=== PATIENT | male | born 1960 | race Hispanic/Latino ===

== ENCOUNTER 2018-06-04 02:22 | Inpatient (IN) | payer OTHER ==
[2018-06-04] MEDS ORDERED: Morphine 4 MG/ML VIAL ONE (03:15)
[2018-06-04] MEDS ORDERED: Ondansetron PF 4 MG/2 ML Vial ONE ×2 (03:15→11:03)
[2018-06-04 03:23] LABS: #Lymphocytes 1.4 thou/uL (1.20-3.40); #Monocytes 0.4 thou/uL (0.11-0.59); %Basophils 0.5 % (0.0-1.0); %Eosinophils 0.4 % (0.0-10.0); %Lymphocytes 16.1 % (21.0-51.0); %Monocytes 4.7 % (0.0-10.0); %Neutrophils 78.4 % (42.0-75.0); Hemoglobin 15.6 g/dL (14.0-18.0); Mean Corpuscular Hemoglobin 32.9 pg (27.0-31.0); Mean Corpuscular Volume 91.4 fL (78.0-98.0); Mean Platelet Volume 9.5 fL (7.4-10.4); Platelet Count 126 thou/uL (130-400); RBC Distribution Width 11.1 % (11.5-14.5); Red Blood Cell (RBC) Count 4.74 mill/uL (4.70-6.10); White Blood Cell (WBC) Count 8.9 thou/uL (4.8-10.8)
[2018-06-04 03:40] LABS: Bilirubin Negative (Negative); Blood, Urine Negative (Negative); Clarity TURBID (Clear); Glucose, Urine (Dipstick) 100 mg/dL (Negative); Leukocyte Negative (Negative); Nitrite Negative (Negative); Protein, Urine (Dipstick) Negative (Neg-Trace); pH, Urine 8.5 (5.0-9.0)
[2018-06-04 03:41] LABS: ALT (SGPT) 140 U/L (8-55); AST (SGOT) 152 U/L (5-34); Albumin 4.4 g/dL (3.5-5.0); Alkaline Phosphatase 112 U/L (40-150); Anion Gap 15 mmol/L (10-20); BUN (Urea Nitrogen) 15 mg/dL (8.4-25.7); Bilirubin, Total 3.2 mg/dL (0.2-1.2); Calc. Creatinine Clearance 0 mL/min (70-130); Calcium 9.7 mg/dL (7.8-10.44); Carbon Dioxide 25 mmol/L (22-29); Chloride 102 mmol/L (98-107); Estimated GFR-MDRD 76; Glucose 238 mg/dL (70-105); Lipase 33 U/L (8-78); Potassium 3.8 mmol/L (3.5-5.1); Protein, Total 7.4 g/dL (6.0-8.3); Sodium 138 mmol/L (136-145)
[2018-06-04] MEDS ORDERED: Piperacillin/Tazobactam 4.5 GM VIAL ONE (04:49)
[2018-06-04] MEDS: Sodium Chloride 0.9% 1,000 ML IV SCH ×2 (06:09→15:25)
[2018-06-04 06:15] VITALS: BMI 29.8
--- NOTE | 2018-06-04 08:57 | CT ---
PRELIMINARY REPORT/[facility]/EMERGENTY AFTER-HOURS PROCEDURE CT Abdomen and Pelvis With Intravenous Contrast EXAM DATE/TIME: 06/04/2018 4:00 AM CLINICAL HISTORY: 57 years old, male; Pain; Abdominal pain; Generalized; Patient HX: , M57 C/O diffuse abd that began y morning and has worsened. Is associated with nausea, without vomiting. PT has a pmh of perfo rated diverticulitis TECHNIQUE: Axial computed tomography images of the abdomen and pelvis with intravenous contrast. Coronal reformatted images were created and reviewed. COMPARISON: No relevant prior studies available. FINDINGS: Lower thorax: Basilar granulomata and mild fibrosis. ABDOMEN: Liver: Low attenuation liver lesions, likely cysts. Mild steatosis. Gallbladder and bile ducts: Probable gallstones and gallbladder wall thickening. Correlate with ultra sound if indicated. Pancreas: Normal. No mass. Spleen: Normal. No splenomegaly. Adrenals: Normal. No mass. Kidneys and ureters: Normal. No hydronephrosis. Stomach and bowel: Prior bowel surgery. No diverticulitis or colitis. No obstruction. Appendix: No evidence of appendicitis. PELVIS: Bladder: Unremarkable as visualized. Reproductive: Unremarkable as visualized. ABDOMEN and PELVIS: Intraperitoneal space: Normal. No free air. No significant fluid collection. Bones/joints: No acute findings. Soft tissues: Small fat-containing inguinal hernias. Vasculature: Normal. No abdominal aortic aneurysm. Lymph nodes: Normal. No enlarged lymph nodes. IMPRESSION: Probable gallstones and gallbladder wall thickening. Thank you for allowing us to participate in the care of your patient. Dictated and Authenticated by: Alek Salinas MD 06/04/2018 4:28 AM Central Time ([place] & [place]) FINAL REPORT ADDENDUM: I agree with the preliminary report provided. One additional finding not numbered in the findings ab ove is a small sub-4 mm subpleural pulmonary nodule within the right middle lobe which is stable to a comparison dated 01/31/2017. Would recommend a right upper quadrant ultrasound to interrogate the ga llbladder as there is gallbladder wall thickening and suspected sludge versus stones. Small polyps w ere seen within a right upper quadrant ultrasound performed earlier on the patient on 01/15/2013. Thi s could reflect small tiny nonshadowing adherent stones. Ultrasound will be better able to interroga te the abnormality seen on the current CT evaluation. POS: [facility]
[2018-06-04] MEDS ORDERED: Ketorolac Tromethamine 30 MG/ML VIAL ONE (11:03)
[2018-06-04] MEDS ORDERED: Glycopyrrolate 0.2 MG/ML 5 ML SYRINGE ONE (11:03)
[2018-06-04] MEDS ORDERED: PROPOFOL 200 MG/20 ML VIAL ONE (11:03)
[2018-06-04] MEDS ORDERED: Dexamethasone 20 MG/5 ML VIAL ONE (11:03)
[2018-06-04] MEDS ORDERED: Lidocaine 1% PF 5 ML VIAL ONE (11:03)
[2018-06-04 12:30] LABS: #Eosinphils 0.1 thou/uL (0.0-0.7); #Lymphocytes 1.6 thou/uL (1.20-3.40); #Monocytes 0.7 thou/uL (0.11-0.59); #Neutrophils 4.6 thou/uL (1.40-6.50); %Basophils 0.7 % (0.0-1.0); %Eosinophils 1.5 % (0.0-10.0); %Lymphocytes 22.6 % (21.0-51.0); %Monocytes 9.3 % (0.0-10.0); %Neutrophils 65.9 % (42.0-75.0); Hemoglobin 14.6 g/dL (14.0-18.0); Mean Corpuscular HGB CONC 34.6 g/dL (32.0-36.0); Mean Corpuscular Volume 92.6 fL (78.0-98.0); Mean Platelet Volume 9.5 fL (7.4-10.4); Platelet Count 128 thou/uL (130-400); RBC Distribution Width 11.1 % (11.5-14.5); Red Blood Cell (RBC) Count 4.57 mill/uL (4.70-6.10)
[2018-06-04 12:51] LABS: ALT (SGPT) 263 U/L (8-55); AST (SGOT) 221 U/L (5-34); Alkaline Phosphatase 114 U/L (40-150); Anion Gap 9 mmol/L (10-20); BUN (Urea Nitrogen) 11 mg/dL (8.4-25.7); Calc. Creatinine Clearance 126 mL/min (70-130); Carbon Dioxide 26 mmol/L (22-29); Chloride 107 mmol/L (98-107); Estimated GFR-MDRD 81; Globulin 2.8 g/dL (2.4-3.5); Glucose 93 mg/dL (70-105); Potassium 3.6 mmol/L (3.5-5.1); Protein, Total 6.8 g/dL (6.0-8.3); Sodium 138 mmol/L (136-145)
[2018-06-04] MEDS ORDERED: Iothalamate Meglumine 60% 50 ML VIAL FS ONE (15:03)
[2018-06-04] MEDS ORDERED: Indomethacin 50 MG SUPP ONE (15:10)
[2018-06-04] MEDS ORDERED: Fentanyl 100 MCG/2 ML VIAL ONE (15:20)
--- NOTE | 2018-06-04 16:26 | CON ---
DATE OF CONSULTATION: 06/04/2018 REASON FOR CONSULTATION: Elevation of liver profile, cholelithiasis. HISTORY OF PRESENT ILLNESS: Mr. Nath is a 57-year-old man, who presented to the ER earlier this morning with severe upper abdominal pain associated with nausea and vomiting. Since then, the pain has subsided and his nausea and vomiting have resolved. In the course of ER evaluation, abdominal and pelvic CT was performed. This exam showed gallstone in addition to gallbladder wall thickening without any discerned biliary dilatation. However, his liver profile showed increased bilirubin from 3.2 to 5.0 in addition to elevation of his AST and ALT. Currently, his pain is much less, rated as 1/10. He is comfortable without any other complaints. PAST MEDICAL HISTORY: History of diverticulitis with perforation in 2017, treated with robotic left hemicolectomy with diverting loop ileostomy with subsequent takedown. No other medical illness. ALLERGIES: NONE. MEDICATIONS AT HOME: None. SOCIAL HISTORY: The patient is . Former smoker. No active tobacco or alcohol use. FAMILY HISTORY: Negative for any known GI problem, liver disease, or GI malignancy. REVIEW OF SYSTEMS: A 10-point review of systems did not show any other pertinent positives or negatives. PHYSICAL EXAMINATION: VITAL SIGNS: Temperature is 98.4, blood pressure 124/76, and pulse of 69. GENERAL: He is alert, conversant, and in no distress. HEENT: Shows anicteric sclerae. Oropharynx clear. NECK: Supple. CV: Shows normal S1 and S2. Regular rate and rhythm. CHEST: bilateral breath sounds, clear. ABDOMEN: Soft. Protuberant. Mildly tender in the epigastrium, but no guarding , tenderness, or rebound. He has active bowel sounds. EXTREMITIES: Show no edema. LABORATORY DATA: Electrolytes within normal range. Creatine, bilirubin 5.0, AST 221, ALT 263, alkaline phosphatase 114. WBC 7.0, hemoglobin 14.6, platelet count of 128. ASSESSMENT: 1. Cholelithiasis with evidence of cholecystitis by CT. 2. Increasing liver profile and bilirubin suggestive of possible choledocholithiasis. RECOMMENDATIONS: Proceed with ERCP with possible papillotomy and stone extraction prior to cholecystectomy. Indications including risk not limited to bleeding, perforation, side effects to medications, and possible pancreatitis were reviewed with Mr. Nath and his . All questions were answered. He agrees to proceed. Job ID: [id number] [facility] FACILITYWojciech
[2018-06-04] MEDS ORDERED: HYDROmorphone 2 MG/ML VIAL SLOW IVP PRN (16:29)
[2018-06-04] MEDS ORDERED: Promethazine HCl 25 MG/ML VIAL SLOW IVP PRN (16:29)
[2018-06-04] MEDS ORDERED: Promethazine HCl 25 MG/ML VIAL IM PRN ×2 (16:29→18:58)
[2018-06-04] MEDS ORDERED: Ondansetron HCl/PF 4 MG/2 ML Vial IVP PRN (16:29)
[2018-06-04] MEDS ORDERED: ISOVUE-370 76%-LOCM 1 ML ONE (16:43)
--- NOTE | 2018-06-04 17:40 | RAD ---
OPERATIVE CHOLANGIOGRAM: 06/04/18 HISTORY: Intraoperative film. Series of four images are preserved for interpretation. On one of these images there is a filling def ect in the distal common duct not definitely seen on any of the other images, possibly an air bubble. IMPRESSION: Single film showing a filling defect in the distal common duct not subsequently seen on the other vicki ges. None of these films show the distal ampullary portion of the common duct or emptying into the du odenum. POS: [facility]
[2018-06-04] MEDS: Piperacillin/Tazobactam 3.375 GM in Sodium Chloride 0.9% 100 ML IVPB SCH ×2 (18:47→23:25)
[2018-06-04] MEDS ORDERED: Morphine 2 MG/ML SYRINGE SLOW IVP PRN (18:58)
[2018-06-04] MEDS ORDERED: Ondansetron PF 4 MG/2 ML Vial IVP PRN (18:58)
[2018-06-04] MEDS ORDERED: Calcium Carbonate 500 MG ChewTAB PO PRN (18:58)
[2018-06-04] MEDS ORDERED: Dextrose 50% Abboject 50 ML SYRINGE SLOW IVP PRN (18:58)
[2018-06-04] MEDS ORDERED: Mag-Al 1200 mg/1200 mg/30 ML UDCUP PO PRN (18:58)
[2018-06-04] MEDS ORDERED: hydrALAZINE 20 MG/ML VIAL SLOW IVP PRN (18:58)
[2018-06-04] MEDS ORDERED: Dextrose 5% in Water 1,000 ML IV PRN (18:58)
[2018-06-04] MEDS: Lactated Ringer's 1,000 ML IV SCH (19:40)
[2018-06-04] MEDS: Famotidine 20 MG TAB PO SCH (20:39)
[2018-06-04] MEDS: Famotidine/PF 20 mg/2ml Vial SLOW IVP SCH (20:39)
[2018-06-04] MEDS: Ketorolac Tromethamine 30 MG/ML VIAL IVP SCH (23:24)
--- NOTE | 2018-06-05 01:27 | OP ---
DATE OF PROCEDURE: 06/04/2018 PROCEDURE PERFORMED: Endoscopic retrograde cholangiopancreatography with papillotomy and stone extraction. PREMEDICATION: Given by Anesthesiology Department. PREPROCEDURE DIAGNOSES: 1. Choledocholithiasis. 2. Elevation of liver profile suggesting choledocholithiasis. POSTPROCEDURE DIAGNOSIS: Choledocholithiasis. DESCRIPTION OF PROCEDURE: Informed consents were obtained prior to the procedure. After adequate sedation, a side-viewing endoscope was advanced down the hypopharynx into the duodenum. The ampulla was visualized and appeared normal. Selective cannulation was performed using a papillotome. Selective cannulation was easy and successful. Injection contrast showed a common duct measuring approximately 7 to 8 mm. A single filling defect was noted in the distal common duct. A sphincterotomy was performed at 12 o'clock position with good hemostasis. A 9-mm balloon was then used to sweep the duct with extraction of a single black stone. Repeat occlusion cholangiogram was then performed. The bile duct was normal with prompt emptying of contrast. The instrument was then completely removed. The patient tolerated the procedure well. ASSESSMENT: Single common duct stone, status post extraction following sphincterotomy. RECOMMENDATION: Proceed with cholecystectomy tomorrow. Job ID: [id number] [facility]
--- NOTE | 2018-06-05 04:10 | HP ---
CHIEF COMPLAINT: Abdominal pain, cholecystitis. HISTORY OF PRESENT ILLNESS: The patient is a 57-year-old male. He speaks broken Turkmen and most of the exam is conducted in Armenian. He is status post sigmoid colectomy with ileostomy and subsequent ileostomy closure. He presented to the emergency room early this morning at about 2 o'clock, complaining of abdominal pain. He had nausea and vomiting associated with this. He had a difficult time isolating the pain to one particular part of his abdomen. In the emergency room, he was evaluated with laboratory and radiologic studies. His CBC was essentially normal with a white blood cell count of 8.9, but his chemistry profile revealed an elevated bilirubin of 3.9, and his AST and ALT were elevated at [address] scan was obtained, revealing a thickened gallbladder wall with cholelithiasis and suggestion of cholecystitis. The patient was placed on IV antibiotics and admitted to my service. This morning, I repeated laboratory studies. This revealed that his CBC was still essentially normal with a white blood cell count of 7 and a hemoglobin of 14.6. His chemistry profile however revealed worsened liver function tests with his bilirubin elevated to 5.0, and his transaminases elevated to 220 and 260. His lipase level was normal when he presented earlier this morning at [address] Jones has graciously already seen the patient in consultation and performed an ERCP. At this time, I am unaware of the ERCP results. PAST MEDICAL HISTORY: 1. Diverticulitis. 2. History of lower back pain. 3. History of elevated liver function tests with bilirubin elevated at 2.0 in 2013 and 2.8 in 2017. PAST SURGICAL HISTORY: Laparoscopic colectomy with ileostomy formation and subsequent ileostomy reversal in 2017. MEDICATIONS: None. ALLERGIES: NO KNOWN DRUG ALLERGIES. PERSONAL AND SOCIAL HISTORY: He is . He has 3 children. 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 He denies tobacco or alcohol use. REVIEW OF SYSTEMS: Otherwise unremarkable. FAMILY HISTORY: Noncontributory. PHYSICAL EXAMINATION: VITAL SIGNS: Temperature 98.7, pulse 65, blood pressure is 125/76. GENERAL: He is a well-developed, well-nourished, pleasant male, resting in bed, in no acute distress. He is alert and oriented x3. HEAD, EYES, EARS, NOSE, THROAT: Unremarkable. NECK: Supple without mass or tenderness. LUNGS: Clear to auscultation. CARDIAC: Regular rate and rhythm without murmur. ABDOMEN: Soft. He has tenderness to palpation in the right upper quadrant. Bowel sounds are present and normoactive. EXTREMITIES: Unremarkable. LABORATORY DATA: As mentioned above. ASSESSMENT: The patient has cholelithiasis and suggestion of choledocholithiasis based on his laboratory studies. ERCP has already been performed. I will speak with Dr. Jones to find out if there was in fact choledocholithiasis. PLAN: Continue with laparoscopic cholecystectomy tomorrow given the evidence of cholecystitis. I have discussed the surgery in detail with the patient as well as potential risks. He understands and agrees to proceed with surgery at this time. 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 I told him that he would have to broach this subject with his primary care physician. Job ID: [id number]
[2018-06-05] MEDS: Ketorolac Tromethamine 30 MG/ML VIAL IVP SCH ×3 (05:15→17:43)
[2018-06-05] MEDS: Piperacillin/Tazobactam 3.375 GM in Sodium Chloride 0.9% 100 ML IVPB SCH ×2 (05:15→12:16)
[2018-06-05] MEDS: Lactated Ringer's 1,000 ML IV SCH ×3 (05:15→19:24)
[2018-06-05 05:48] LABS: #Lymphocytes 1.3 thou/uL (1.20-3.40); #Monocytes 0.5 thou/uL (0.11-0.59); #Neutrophils 6.2 thou/uL (1.40-6.50); %Basophils 0.3 % (0.0-1.0); %Eosinophils 0.2 % (0.0-10.0); %Lymphocytes 16.1 % (21.0-51.0); %Monocytes 5.8 % (0.0-10.0); %Neutrophils 77.5 % (42.0-75.0); Hemoglobin 14.7 g/dL (14.0-18.0); Mean Corpuscular Hemoglobin 32.6 pg (27.0-31.0); Mean Corpuscular Volume 93.3 fL (78.0-98.0); Platelet Count 132 thou/uL (130-400); RBC Distribution Width 11.2 % (11.5-14.5); Red Blood Cell (RBC) Count 4.51 mill/uL (4.70-6.10)
[2018-06-05 05:56] LABS: ALT (SGPT) 325 U/L (8-55); AST (SGOT) 193 U/L (5-34); Albumin 3.9 g/dL (3.5-5.0); Alkaline Phosphatase 131 U/L (40-150); Anion Gap 12 mmol/L (10-20); BUN (Urea Nitrogen) 12 mg/dL (8.4-25.7); Bilirubin, Total 8.2 mg/dL (0.2-1.2); Calc. Creatinine Clearance 105 mL/min (70-130); Calcium 9.2 mg/dL (7.8-10.44); Carbon Dioxide 26 mmol/L (22-29); Chloride 105 mmol/L (98-107); Estimated GFR-MDRD 66; Globulin 2.7 g/dL (2.4-3.5); Glucose 157 mg/dL (70-105); Lipase 16 U/L (8-78); Protein, Total 6.6 g/dL (6.0-8.3); Sodium 139 mmol/L (136-145)
[2018-06-05] MEDS: Famotidine/PF 20 mg/2ml Vial SLOW IVP SCH ×2 (08:39→22:50)
[2018-06-05] MEDS: Famotidine 20 MG TAB PO SCH ×2 (08:39→20:45)
[2018-06-05] MEDS ORDERED: Lidocaine 1% PF 5 ML VIAL ONE (12:38)
[2018-06-05] MEDS ORDERED: Dexamethasone 20 MG/5 ML VIAL ONE (12:38)
[2018-06-05] MEDS ORDERED: ePHEDrine/0.9% NaCl/PF SYRINGE 50 mg/10 ml ONE (12:38)
[2018-06-05] MEDS ORDERED: PROPOFOL 200 MG/20 ML VIAL ONE (12:38)
[2018-06-05] MEDS ORDERED: Iothalamate Meglumine 60% 50 ML VIAL FS ONE (13:15)
[2018-06-05] MEDS ORDERED: Bupivacaine/Epinephrine 0.25% 30 ML VIAL ONE (13:15)
[2018-06-05] MEDS ORDERED: Fentanyl 100 MCG/2 ML VIAL ONE (13:41)
--- NOTE | 2018-06-05 16:46 | RAD ---
INTRAOPERATIVE CHOLANGIOGRAM: 06/05/18 HISTORY: 57-year-old male with history of laparoscopic cholecystectomy with cholangiogram. Contrast media is injected through the cystic duct with filling of a normal appearing common bile ney t. Portions of the intrahepatic ducts are not visualized. There are two filling defects in the cystic duct, conceivably could represent small air bubbles. They were not distinctly evident on the initial injection image. Slight nodularity at the level of the common bile duct ampulla junction. IMPRESSION: No overt retained calculus within the common duct. Two possible small filling defects in the cystic d uct, possibly small air bubbles versus less likely tiny stones. Code T POS: [facility]
[2018-06-05] MEDS ORDERED: HYDROcodone/Acetaminophen 7.5/325 mg Tablet PO PRN ×2 (17:15)
[2018-06-06] MEDS: Ketorolac Tromethamine 30 MG/ML VIAL IVP SCH ×3 (01:00→11:42)
[2018-06-06] MEDS: Lactated Ringer's 1,000 ML IV SCH ×2 (05:35→11:44)
[2018-06-06 06:21] LABS: ALT (SGPT) 318 U/L (8-55); AST (SGOT) 149 U/L (5-34); Albumin 3.7 g/dL (3.5-5.0); Alkaline Phosphatase 129 U/L (40-150); Anion Gap 9 mmol/L (10-20); BUN (Urea Nitrogen) 14 mg/dL (8.4-25.7); Bilirubin, Total 7.3 mg/dL (0.2-1.2); Calc. Creatinine Clearance 110 mL/min (70-130); Calcium 8.7 mg/dL (7.8-10.44); Carbon Dioxide 29 mmol/L (22-29); Chloride 106 mmol/L (98-107); Estimated GFR-MDRD 69; Globulin 2.6 g/dL (2.4-3.5); Glucose 111 mg/dL (70-105); Lipase 20 U/L (8-78); Potassium 3.5 mmol/L (3.5-5.1); Protein, Total 6.3 g/dL (6.0-8.3); Sodium 140 mmol/L (136-145)
[2018-06-06 06:40] LABS: #Eosinphils 0.3 thou/uL (0.0-0.7); #Lymphocytes 1.5 thou/uL (1.20-3.40); #Monocytes 0.6 thou/uL (0.11-0.59); #Neutrophils 5.2 thou/uL (1.40-6.50); %Basophils 0.5 % (0.0-1.0); %Eosinophils 3.4 % (0.0-10.0); %Lymphocytes 19.7 % (21.0-51.0); %Monocytes 7.3 % (0.0-10.0); %Neutrophils 69.1 % (42.0-75.0); Hemoglobin 13.9 g/dL (14.0-18.0); Mean Corpuscular HGB CONC 34.6 g/dL (32.0-36.0); Mean Corpuscular Hemoglobin 32.8 pg (27.0-31.0); Mean Corpuscular Volume 94.8 fL (78.0-98.0); Mean Platelet Volume 9.9 fL (7.4-10.4); PLT Morphology Comment Appears Decreased; Platelet Count 112 thou/uL (130-400); RBC Distribution Width 11.3 % (11.5-14.5); Red Blood Cell (RBC) Count 4.23 mill/uL (4.70-6.10); White Blood Cell (WBC) Count 7.5 thou/uL (4.8-10.8)
[2018-06-06] MEDS: Famotidine 20 MG TAB PO SCH (08:07)
[2018-06-06] MEDS: Famotidine/PF 20 mg/2ml Vial SLOW IVP SCH (08:07)
[2018-06-06 11:52] VITALS: BP 109/73; TEMP 99
--- NOTE | 2018-06-07 13:05 | DIS ---
DATE OF ADMISSION: 06/04/2018 DATE OF DISCHARGE: 06/06/2018 ADMISSION DIAGNOSES: 1. Abdominal pain. 2. Cholelithiasis. 3. Suspected cholecystitis. DISCHARGE DIAGNOSES: 1. Abdominal pain. 2. Cholelithiasis. 3. Suspected cholecystitis. 4. Choledocholithiasis. PROCEDURES PERFORMED: 1. ERCP per Dr. Manuel Jones on 06/04/2018. 2. Laparoscopic cholecystectomy per Dr. Seb Pulido on 06/05/2018. ADMISSION HISTORY: The patient is a 57-year-old male. He presented to the emergency room complaining of abdominal pain. Initial imaging revealed findings consistent with a thickened gallbladder wall and cholelithiasis. Laboratory studies revealed elevated bilirubin level of 3. By the following morning, his bilirubin level had elevated to 5. His white blood cell count was never elevated. Dr. Jones saw the patient on consultation who performed an ERCP, removing a single common bile duct stone. The following day, on 06/05, we performed laparoscopic cholecystectomy and cholangiogram. Although the contrast passed freely through the common bile duct and the duodenum, there was noted to be two stones within the cystic ducts. These were each extracted laparoscopically. Completion cholangiogram was unremarkable. His laboratory studies had revealed that his bilirubin had gone up to 8.2 on the before his gallbladder surgery. Today, on the , it has dropped down to the 7.3. He has remained afebrile with normal vital signs. He is tolerating his diet unremarkably and denied significant discomfort. In summary, he has done well following laparoscopic cholecystectomy with cholangiogram and preoperative ERCP. His bilirubin is now trending downwards and his exam is benign and he feels well. I believe he is stable for discharge. I would like to see him back in one week and obtain repeat liver function tests at that time. He denies any pain and requests no pain medications. Job ID: [id number]
--- NOTE | 2018-06-07 19:53 | OP ---
DATE OF PROCEDURE: 06/05/2018 PREOPERATIVE DIAGNOSIS: Cholelithiasis with recent choledocholithiasis. POSTOPERATIVE DIAGNOSIS: Cholelithiasis with recent choledocholithiasis. OPERATION PERFORMED: Laparoscopic cholecystectomy with intraoperative cholangiogram and cystic duct exploration with removal of 2 cystic duct stones. ANESTHESIA: General endotracheal. INDICATIONS: The patient is a 57-year-old male. He presented to the hospital with abdominal pain and was noted to have CT findings consistent with cholecystitis and cholelithiasis. His bilirubin was quite elevated at 3 on the day of presentation and went up to 5 the following morning. On that day, Dr. Manuel Jones performed an ERCP with removal of a single common bile duct stone. Unfortunately, this morning, his bilirubin went up even further and is 8 today. I therefore recommended laparoscopic cholecystectomy and cholangiogram. DESCRIPTION OF OPERATION: Informed consent was obtained. The patient was taken to the operating room, where general endotracheal anesthesia was obtained with the patient in supine position. Abdomen was prepped with ChloraPrep and draped in sterile fashion. Local anesthetic was infiltrated using 0.25% Marcaine with epinephrine. A 11 mm supraumbilical incision was created through which a Veress needle was passed into the peritoneal cavity. Pneumoperitoneum was established using carbon dioxide up to a pressure of 15 mmHg. A 11 mm trocar port port. Under direct vision, 3 additional 5 mm right upper quadrant ports were placed. The patient was placed in reverse Trendelenburg and attention was turned to the gallbladder. This was completely covered with omental adhesions. These were carefully dissected away using a combination of sharp and blunt dissection, maintained hemostasis with electrocautery. The apex of the gallbladder was eventually identified, grasped, and retracted laterally. Careful dissection was carried out at the apex of the gallbladder in order to identify the cystic duct and cystic artery. The duct did not appear to be substantially dilated. It was dissected circumferentially and a clip was placed proximally and ductotomy was created in the usual fashion. Cholangiogram was obtained. This revealed 2 filling defects within the distal cystic duct, but the common bile duct itself appeared to be within normal limits with a fairly normal caliber and easy flow of bile into the duodenum as well as retrograde up into the liver. Attention was then turned to the cystic duct. I dissected this a couple of centimeters distally and using the [place] dissector, I was able to milk the cystic duct contents retrograde. In so doing, I was able to extract both of the visualized stones back into the peritoneal cavity. A completion cholangiogram was then obtained with normal cystic and common bile duct appearance. The duct was then doubly clipped distally and divided. The artery was divided between clips leaving 2 on the side within the abdomen. The gallbladder was then carefully dissected off the gallbladder fossa and removed through the umbilical port. Fascia was then closed with 0 Vicryl sutures and GraNee needle. The right upper quadrant was thoroughly irrigated. All irrigant was aspirated. There was no evidence of any bile leak or bleeding. All ports and instruments were removed under direct vision. Pneumoperitoneum was carefully evacuated. 0.25% Marcaine with epinephrine was infiltrated at each port site and skin edges were approximated with 4-0 Monocryl subcuticular suture. Dermabond was placed externally. There were no complications. The patient tolerated the procedure well and was taken to recovery room in stable condition. Job ID: [id number]
== END 2018-06-06 15:37 | disposition home or self-care (01) | DRG 419 ==
LOC: ERS 02:22 → OBSVTOIN 03:42 → SURG A 03:42
PROVIDERS: ADMIT Specialist; ATTEND Specialist
PROC: 0FC98ZZ Extirpation of Matter from Common Bile Duct, Via Natural or Artificial Opening Endoscopic (ICD-10-PCS; 2018-06-04)
PROC: BF101ZZ Fluoroscopy of Bile Ducts using Low Osmolar Contrast (ICD-10-PCS; 2018-06-04)
PROC: 0FT44ZZ Resection of Gallbladder, Percutaneous Endoscopic Approach (ICD-10-PCS; principal; 2018-06-05)
PROC: BF101ZZ Fluoroscopy of Bile Ducts using Low Osmolar Contrast (ICD-10-PCS; 2018-06-05)
PROC: 0FC88ZZ Extirpation of Matter from Cystic Duct, Via Natural or Artificial Opening Endoscopic (ICD-10-PCS; 2018-06-05)
DX: K80.60 Calculus of gallbladder and bile duct with cholecystitis, unspecified, without obstruction (principal); Z90.49 Acquired absence of other specified parts of digestive tract; M54.5 Low back pain; E11.9 Type 2 diabetes mellitus without complications
CPT/HCPCS: 36415; 47532; 74177; 74330; 80053; 81003; 82010; 83605; 83690; 85025; 88304; 96361; 96374; 96375; J0131; J1100; J1610; J1885; J2001; J2270; J2405; J2543; J2704; J3010; J7050; Q9961; S0028

== ENCOUNTER 2018-08-04 09:22 | Outpatient (CLI) | payer OTHER ==
--- NOTE | 2018-08-04 12:26 | MRI ---
MRI LUMBAR SPINE WITHOUT CONTRAST: Indication: Low back pain with right sided radiculopathy. Technique: Multiplanar, multisequence MR images were obtained of the lumbar spine without IV contrast . FINDINGS: There is a bony hemangioma within the central aspect of L2. Conus terminates at approximately T12-l1. Retroperitoneum and paravertebral soft tissues are unremarkable appearing. At the L5-S1 level there is a broad based bulge with facet hypertrophy and post degenerative change. There is mild left neural foraminal narrowing due to loss of disc space height, broad based disc bulg e and facet joint degenerative change. At L4-5, there is a broad based bulge with mild facet joint degenerative change but no appreciative c entral canal or neural foraminal narrowing. At L3-4, there is a broad based bulge with facet hypertrophy but no appreciable central canal or neur al foraminal narrowing. At L2-3, there is a mild broad based bulge and mild facet joint degenerative change but no appreciabl e central canal or neural foraminal narrowing. At L1-2, there is a mild broad based bulge no appreciable central canal or neural foraminal narrowing . At T12-L1, there is no appreciable central canal or neural foraminal narrowing. IMPRESSION: Multilevel spondylosis of the lumbar spine with mild left neural foraminal narrowing at L5-S1. POS: [facility]
== END 2018-08-04 09:23 | disposition home or self-care (01) ==
LOC: BICMRI 09:22
PROVIDERS: ATTEND Family Medicine
DX: M47.26 Other spondylosis with radiculopathy, lumbar region (principal); M48.07 Spinal stenosis, lumbosacral region
CPT/HCPCS: 72148

== ENCOUNTER 2018-09-01 15:43 | Outpatient (CLI) | payer OTHER ==
--- NOTE | 2018-09-01 16:44 | RAD ---
RIGHT HIP TWO VIEWS: Indication: Right hip pain. Comparison: None. FINDINGS: No acute fracture or subluxation is evident. Small phlebolith seen within the right hemipelvis. IMPRESSION: No acute osseous abnormality. POS: [facility]
--- NOTE | 2018-09-01 17:38 | RAD ---
CERVICAL SPINE FOUR VIEWS MINIMUM WITH SIX IMAGES SUBMITTED FOR INTERPRETATION: INDICATIONS: Cervical radicular pain. FINDINGS: There is advanced degenerative disease at C5-C6 and C6-C7. No abnormal translational motion is evide nt. The lateral masses are symmetric. The lung apices are clear. IMPRESSION: Mild spondylosis of the cervical spine. No abnormal translational motion. POS: [facility]
--- NOTE | 2018-09-01 17:42 | RAD ---
LUMBAR SPINE FOUR VIEWS: INDICATIONS: Lumbar radiculopathy. FINDINGS: There is mild disk degenerative disease at L3-L4 through L5-S1. Spinal alignment appears within norm al limits. No abnormal translational motion is noted. The SI joints are normal appearing. IMPRESSION: Mild disk degenerative disease, lumbar spine. POS: [facility]
== END 2018-09-01 15:44 | disposition home or self-care (01) ==
LOC: RAD 15:43
PROVIDERS: ATTEND Nurse Practitioner Family
DX: M51.36 Other intervertebral disc degeneration, lumbar region (principal); M47.22 Other spondylosis with radiculopathy, cervical region; M25.551 Pain in right hip
CPT/HCPCS: 72050; 72110

== ENCOUNTER 2018-09-09 06:48 | Outpatient (CLI) | payer OTHER ==
--- NOTE | 2018-09-09 08:14 | ULT ---
SONOGRAM ABDOMEN COMPLETE: HISTORY: Abnormal liver function tests. FINDINGS: Gallbladder is surgically absent. The common duct is 0.6 cm. Liver has a heterogeneous echotexture. Lobular cyst within the right lobe is 4.8 x 4.6 x 3.2 cm greatest diameters. No solid masses or in trahepatic biliary dilatation. No free fluid is apparent. The spleen is 13.4 cm without focal abnor mality. The kidneys and visualized portions of the abdominal aorta, IVC, and pancreas are unremarkab le. IMPRESSION: 1. Status post cholecystectomy. No evidence of biliary obstruction. 2. Mild splenomegaly. Cause is not evident. POS: [facility]
== END 2018-09-09 06:49 | disposition home or self-care (01) ==
LOC: BICULT 06:48
PROVIDERS: ATTEND Family Medicine
DX: R94.5 Abnormal results of liver function studies (principal); R16.1 Splenomegaly, not elsewhere classified; Z90.49 Acquired absence of other specified parts of digestive tract
CPT/HCPCS: 76700